=== PATIENT | female | born 1955 | race Caucasian/White ===

== ENCOUNTER 2024-04-23 14:42 | Inpatient (IN) | payer OTHER ==
[~2024-04-23] VITALS: Ht 154.9 cm; Wt 67.6 kg
[~2024-04-23 14:42] MED LIST: DULO-29 PO; GLIP10TA12 PO; INSU100S22 SUBQ; LOSA100T52 PO; PANT40EC56 PO; TRAZ-471 PO
[2024-04-23 15:05] VITALS: BP 147/58; PULSE 103; RESP 18; TEMP 99.1; O2SAT 99
[2024-04-23 15:58] LABS: BASOPHILS # (AUTO) 0.1 K/uL (0.00-0.22); BASOPHILS % (AUTO) 0.4 % (0.0-2.0); EOSINOPHILS % (AUTO) 0.1 % (0.0-4.0); HEMATOCRIT 25.6 % (36-48); HEMOGLOBIN 8.3 g/dL (12.0-16.0); LYMPHOCYTES # (AUTO) 0.7 K/uL (2.5-16.5); LYMPHOCYTES % (AUTO) 3.9 % (20.5-51.1); MEAN CORPUSCULAR HEMOGLOBIN 26 pg (27-31); MEAN CORPUSCULAR HGB CONC 32 g/dL (33-37); MEAN CORPUSCULAR VOLUME 81.2 fL (80-94); MONOCYTES # (AUTO) 0.9 K/uL (0.8-1.0); MONOCYTES % (AUTO) 5.2 % (1.7-9.3); NEUTROPHILS # (AUTO) 15.2 K/uL (1.8-7.7); NEUTROPHILS % (AUTO) 90.4 % (42.2-75.2); PLATELET COUNT (AUTO) 440 K/uL (140-450); RED BLOOD CELL COUNT(AUTO) 3.16 MIL/uL (4.20-5.40); RED CELL DISTRIBUTION WIDTH 16.6 % (11.6-13.7); WHITE BLOOD COUNT (AUTO) 16.8 K/uL (4.8-10.8)
[2024-04-23 16:10] LABS: ANION GAP 17.8 (8-16); CALCIUM 7.8 mg/dL (8.5-10.1); CREATININE 1.2 mg/dL (0.6-1.3); POTASSIUM 3.8 mmol/L (3.5-5.1)
[2024-04-23 16:21] LABS: LACTIC ACID 2.9 mmol/L (0.4-2.0)
[2024-04-23 16:23] LABS: ALBUMIN 2.1 g/dL (3.4-5.0); BILIRUBIN,DIRECT 0.4 mg/dL (0.0-0.3); TOTAL BILIRUBIN 0.7 mg/dL (0.0-1.0); TOTAL PROTEIN, SERUM 8.2 g/dL (6.4-8.2)
[2024-04-23] MEDS ORDERED: cefTRIAXone 1,000 MG VIAL ONE (16:38)
[2024-04-23] MEDS: HYDROcodone/APAP 5/325 MG 1 TAB TAB PO ONE (16:42)
[2024-04-23] MEDS: NACL 0.9% 1,000 ML IV ONE ×2 (16:49→17:51)
[2024-04-23] MEDS ORDERED: MAGNESIUM OXIDE 400 MG TAB PO PRN (17:35)
[2024-04-23] MEDS ORDERED: POTASSIUM CHLORIDE 10 MEQ TABER PO PRN (17:35)
[2024-04-23] MEDS ORDERED: KCL 20 MEQ IN 100 mL PREMIX 200 ML IV PRN (17:35)
[2024-04-23] MEDS ORDERED: VANCOMYCIN PER PHARMACY MC PRN (17:35)
[2024-04-23 18:23] LABS: APPEARANCE,URINE SLIGHTLY HAZY (CLEAR); BILIRUBIN,URINE NEGATIVE (NEGATIVE); BLOOD, URINE NEGATIVE (NEGATIVE); COLOR,URINE YELLOW (YELLOW); LEUKOCYTE ESTERASE ,URINE 1+ (NEGATIVE); NITRITE, URINE NEGATIVE (NEGATIVE); PROTEIN,URINE 3+ (NEGATIVE); UGLUCOSE TRACE (NEGATIVE)
[2024-04-23 18:30] LABS: RBC,URINE 0 /HPF (0-5)
[2024-04-23 18:31] LABS: BACTERIA,URINE 2+ /HPF (None Seen); MUCUS,URINE None Seen /LPF (None Seen); SQUAMOUS EPITHELIAL CELL,UR 0-3 (FEW) /LPF (0-3 (FEW))
[2024-04-23 18:32] LABS: FINE GRANULAR CASTS,URINE 0-10 /LPF (None Seen)
[2024-04-23] MEDS: VANCOMYCIN HCL 750 MG in NACL 0.9% 250 ML IV SCH (18:39)
[2024-04-23] MEDS: NACL 0.9% 1,000 ML IV SCH (18:40)
[2024-04-23 20:55] VITALS: PULSE 76; RESP 20; O2SAT 95
[2024-04-24] VITALS: BP 129/55; PULSE 67; PULSE 70; RESP 20; TEMP 97.4; O2SAT 97
[2024-04-24 04:00] VITALS: BP 130/62; PULSE 71; PULSE 78; RESP 19; TEMP 97.5; O2SAT 96
[2024-04-24 06:41] LABS: BASOPHILS % (AUTO) 0.2 % (0.0-2.0); EOSINOPHILS # (AUTO) 0.2 K/uL (0-0.4); HEMATOCRIT 21.3 % (36-48); LYMPHOCYTES # (AUTO) 2.4 K/uL (2.5-16.5); LYMPHOCYTES % (AUTO) 14.9 % (20.5-51.1); MEAN CORPUSCULAR HEMOGLOBIN 26 pg (27-31); MEAN CORPUSCULAR HGB CONC 33 g/dL (33-37); MEAN CORPUSCULAR VOLUME 80.7 fL (80-94); MONOCYTES # (AUTO) 0.9 K/uL (0.8-1.0); MONOCYTES % (AUTO) 5.5 % (1.7-9.3); NEUTROPHILS # (AUTO) 12.8 K/uL (1.8-7.7); NEUTROPHILS % (AUTO) 78.4 % (42.2-75.2); PLATELET COUNT (AUTO) 388 K/uL (140-450); RED BLOOD CELL COUNT(AUTO) 2.64 MIL/uL (4.20-5.40); RED CELL DISTRIBUTION WIDTH 15.9 % (11.6-13.7); WHITE BLOOD COUNT (AUTO) 16.4 K/uL (4.8-10.8)
[2024-04-24 06:48] LABS: ANION GAP 12.6 (8-16); CALCIUM 7.1 mg/dL (8.5-10.1); CARBON DIOXIDE 24.4 mmol/L (21-32); CREATININE 0.9 mg/dL (0.6-1.3)
[2024-04-24 07:27] LABS: MAGNESIUM 1.5 mg/dL (1.8-2.4); PHOSPHORUS 2.8 mg/dL (2.5-4.9)
[2024-04-24 08:00] VITALS: BP 142/60; PULSE 72; PULSE 78; RESP 18; TEMP 97.7; O2SAT 100
[2024-04-24 12:00] VITALS: BP 125/49; PULSE 74; PULSE 82; RESP 18; TEMP 98.5; O2SAT 100
[2024-04-24 16:00] VITALS: BP 125/52; PULSE 85; PULSE 87; RESP 18; TEMP 98.2; O2SAT 98
[2024-04-24] MEDS ORDERED: traZODone 50 MG TAB PO PRN (17:25)
[2024-04-24 18:21] LABS: FLU A ANTIGEN negative (NEGATIVE); FLU B ANTIGEN negative (NEGATIVE)
[2024-04-24] MEDS: HYDROcodone/APAP 5/325 MG 1 TAB TAB PO PRN (19:01)
[2024-04-24 20:00] VITALS: BP 149/60; PULSE 98; RESP 18; TEMP 97.7; TEMP 98.2; O2SAT 96; O2SAT 98
[2024-04-24] MEDS: glipiZIDE 10 MG TAB PO SCH (20:17)
[2024-04-24] MEDS: MAG SULF 2000 MG/WATER PREMIX 50 ML IV PRN (20:54)
[2024-04-24] MEDS ORDERED: NON-FORMULARY ITEM (Trazodone HCl 1 TAB) PO SCH (21:00)
[2024-04-24] MEDS: traZODone 50 MG TAB PO PRN (21:49)
[2024-04-25] VITALS: BP 149/60; PULSE 98; RESP 18; TEMP 97.7; O2SAT 98
[2024-04-25 04:00] VITALS: BP 149/63; PULSE 77; RESP 16; TEMP 96.6; O2SAT 100
[2024-04-25] MEDS: PANTOPRAZOLE 40 MG TABEC PO SCH (07:02)
[2024-04-25 07:06] LABS: BASOPHILS # (AUTO) 0.1 K/uL (0.00-0.22); BASOPHILS % (AUTO) 0.7 % (0.0-2.0); EOSINOPHILS # (AUTO) 0.3 K/uL (0-0.4); EOSINOPHILS % (AUTO) 3.8 % (0.0-4.0); HEMATOCRIT 22.1 % (36-48); HEMOGLOBIN 7.2 g/dL (12.0-16.0); LYMPHOCYTES # (AUTO) 1.7 K/uL (2.5-16.5); LYMPHOCYTES % (AUTO) 19.6 % (20.5-51.1); MEAN CORPUSCULAR HEMOGLOBIN 26 pg (27-31); MEAN CORPUSCULAR HGB CONC 32 g/dL (33-37); MEAN CORPUSCULAR VOLUME 81.4 fL (80-94); MONOCYTES # (AUTO) 0.8 K/uL (0.8-1.0); MONOCYTES % (AUTO) 8.8 % (1.7-9.3); NEUTROPHILS # (AUTO) 5.8 K/uL (1.8-7.7); NEUTROPHILS % (AUTO) 67.1 % (42.2-75.2); PLATELET COUNT (AUTO) 439 K/uL (140-450); RED BLOOD CELL COUNT(AUTO) 2.72 MIL/uL (4.20-5.40); WHITE BLOOD COUNT (AUTO) 8.7 K/uL (4.8-10.8)
[2024-04-25 07:13] LABS: ANION GAP 11.1 (8-16); CALCIUM 7.5 mg/dL (8.5-10.1); CARBON DIOXIDE 24.8 mmol/L (21-32); CREATININE 0.9 mg/dL (0.6-1.3); POTASSIUM 3.9 mmol/L (3.5-5.1)
[2024-04-25 07:28] LABS: PHOSPHORUS 2.7 mg/dL (2.5-4.9)
[2024-04-25 08:00] VITALS: BP 144/59; PULSE 79; RESP 16; RESP 18; TEMP 97.5; TEMP 97.7; O2SAT 95; O2SAT 96
[2024-04-25] MEDS ORDERED: DULOXETINE HCL PO SCH (09:00)
[2024-04-25] MEDS ORDERED: NON-FORMULARY ITEM (Losartan Potassium 1 TAB) PO SCH (09:00)
[2024-04-25] MEDS: DULoxetine 30 MG CAPDR PO SCH (10:29)
[2024-04-25] MEDS: LOSARTAN 50 MG TAB PO SCH (10:30)
[2024-04-25] MEDS ORDERED: DEXTROSE 50% 50 ML SYR IVP PRN (18:15)
[2024-04-25] MEDS: INSULIN LISPRO SLIDING SCALE 100 UNITS/ML VIAL SUBQ PRN (18:26)
[2024-04-25] MEDS: VANCOMYCIN HCL 750 MG in NACL 0.9% 250 ML IV SCH (18:33)
[2024-04-25 20:00] VITALS: BP 131/63; PULSE 98; RESP 16; RESP 18; TEMP 97.6; O2SAT 98
[2024-04-25] MEDS: BLOOD GLUCOSE MONITORING 1 DEV DEV FS SCH (20:52)
[2024-04-26 04:00] VITALS: BP 125/53; PULSE 78; RESP 18; TEMP 97.3; O2SAT 95
[2024-04-26 06:32] LABS: BASOPHILS % (AUTO) 0.5 % (0.0-2.0); EOSINOPHILS # (AUTO) 0.3 K/uL (0-0.4); EOSINOPHILS % (AUTO) 2.9 % (0.0-4.0); LYMPHOCYTES # (AUTO) 2.3 K/uL (2.5-16.5); LYMPHOCYTES % (AUTO) 25.9 % (20.5-51.1); MEAN CORPUSCULAR HEMOGLOBIN 27 pg (27-31); MEAN CORPUSCULAR HGB CONC 33 g/dL (33-37); MEAN CORPUSCULAR VOLUME 81.3 fL (80-94); MONOCYTES # (AUTO) 0.8 K/uL (0.8-1.0); MONOCYTES % (AUTO) 9.5 % (1.7-9.3); NEUTROPHILS # (AUTO) 5.3 K/uL (1.8-7.7); NEUTROPHILS % (AUTO) 61.2 % (42.2-75.2); PLATELET COUNT (AUTO) 449 K/uL (140-450); RED BLOOD CELL COUNT(AUTO) 2.63 MIL/uL (4.20-5.40); RED CELL DISTRIBUTION WIDTH 16.2 % (11.6-13.7); WHITE BLOOD COUNT (AUTO) 8.7 K/uL (4.8-10.8)
[2024-04-26 06:41] LABS: ANION GAP 10.6 (8-16); CALCIUM 7.4 mg/dL (8.5-10.1); CARBON DIOXIDE 23.9 mmol/L (21-32); CREATININE 0.9 mg/dL (0.6-1.3); POTASSIUM 3.5 mmol/L (3.5-5.1)
[2024-04-26 06:51] LABS: PHOSPHORUS 2.8 mg/dL (2.5-4.9)
[2024-04-26 07:29] LABS: HEMATOCRIT 21.4 % (36-48)
[2024-04-26 08:00] VITALS: PULSE 66; RESP 18; TEMP 97.4; O2SAT 99
[2024-04-26 13:36] VITALS: BP 118/53; PULSE 66; RESP 18; TEMP 97.4; O2SAT 99
[2024-04-26 19:01] LABS: BASOPHILS # (AUTO) 0.1 K/uL (0.00-0.22); BASOPHILS % (AUTO) 0.6 % (0.0-2.0); EOSINOPHILS # (AUTO) 0.2 K/uL (0-0.4); EOSINOPHILS % (AUTO) 2.2 % (0.0-4.0); HEMATOCRIT 25.8 % (36-48); HEMOGLOBIN 8.3 g/dL (12.0-16.0); LYMPHOCYTES % (AUTO) 21.7 % (20.5-51.1); MEAN CORPUSCULAR HEMOGLOBIN 27 pg (27-31); MEAN CORPUSCULAR HGB CONC 32 g/dL (33-37); MEAN CORPUSCULAR VOLUME 83.2 fL (80-94); MONOCYTES # (AUTO) 0.9 K/uL (0.8-1.0); MONOCYTES % (AUTO) 9.8 % (1.7-9.3); NEUTROPHILS # (AUTO) 6.1 K/uL (1.8-7.7); NEUTROPHILS % (AUTO) 65.7 % (42.2-75.2); PLATELET COUNT (AUTO) 476 K/uL (140-450); RED CELL DISTRIBUTION WIDTH 16.5 % (11.6-13.7); WHITE BLOOD COUNT (AUTO) 9.3 K/uL (4.8-10.8)
[2024-04-26 20:00] VITALS: BP 140/76; PULSE 78; RESP 18; TEMP 98.2; O2SAT 98
[2024-04-27 06:45] LABS: HEMATOCRIT 25.3 % (36-48); HEMOGLOBIN 8.3 g/dL (12.0-16.0); MEAN CORPUSCULAR HEMOGLOBIN 27 pg (27-31); MEAN CORPUSCULAR HGB CONC 33 g/dL (33-37); MEAN CORPUSCULAR VOLUME 82.2 fL (80-94); PLATELET COUNT (AUTO) 484 K/uL (140-450); RED BLOOD CELL COUNT(AUTO) 3.08 MIL/uL (4.20-5.40); RED CELL DISTRIBUTION WIDTH 16.8 % (11.6-13.7); WHITE BLOOD COUNT (AUTO) 9.7 K/uL (4.8-10.8)
[2024-04-27 07:25] LABS: ANION GAP 11.8 (8-16); CALCIUM 8.4 mg/dL (8.5-10.1); CARBON DIOXIDE 22.9 mmol/L (21-32); CREATININE 1.6 mg/dL (0.6-1.3); POTASSIUM 3.7 mmol/L (3.5-5.1)
[2024-04-27 07:36] LABS: MAGNESIUM 1.9 mg/dL (1.8-2.4); PHOSPHORUS 3.7 mg/dL (2.5-4.9)
[2024-04-27 08:00] VITALS: BP 156/77; PULSE 73; RESP 18; TEMP 97.1; O2SAT 97
[2024-04-27 08:01] LABS: BASOPHILS % (MANUAL) 1 % (0-2)
[2024-04-27 08:02] LABS: EOSINOPHILS % (MANUAL) 5 % (0-4); MONOCYTES % (MANUAL) 10 % (5-12)
[2024-04-27 08:03] LABS: LYMPHOCYTES % (MANUAL) 24 % (20-46)
[2024-04-27 09:26] VITALS: BP 149/56; PULSE 83; TEMP 98
[2024-04-27] MEDS: cefTRIAXone 1,000 MG VIAL ONE (18:14)
[2024-04-27 20:00] VITALS: PULSE 75
[2024-04-28] VITALS: BP 124/66; PULSE 78; TEMP 98.3; O2SAT 98
[2024-04-28 07:05] LABS: BASOPHILS # (AUTO) 0.1 K/uL (0.00-0.22); BASOPHILS % (AUTO) 1.1 % (0.0-2.0); EOSINOPHILS # (AUTO) 0.3 K/uL (0-0.4); EOSINOPHILS % (AUTO) 3.6 % (0.0-4.0); HEMATOCRIT 24.9 % (36-48); HEMOGLOBIN 8.1 g/dL (12.0-16.0); MEAN CORPUSCULAR HEMOGLOBIN 27 pg (27-31); MEAN CORPUSCULAR HGB CONC 33 g/dL (33-37); MEAN CORPUSCULAR VOLUME 82.4 fL (80-94); MONOCYTES # (AUTO) 0.7 K/uL (0.8-1.0); MONOCYTES % (AUTO) 8.6 % (1.7-9.3); NEUTROPHILS # (AUTO) 5.3 K/uL (1.8-7.7); NEUTROPHILS % (AUTO) 62.7 % (42.2-75.2); PLATELET COUNT (AUTO) 501 K/uL (140-450); RED BLOOD CELL COUNT(AUTO) 3.02 MIL/uL (4.20-5.40); RED CELL DISTRIBUTION WIDTH 16.6 % (11.6-13.7); WHITE BLOOD COUNT (AUTO) 8.4 K/uL (4.8-10.8)
[2024-04-28 07:17] LABS: PHOSPHORUS 4.2 mg/dL (2.5-4.9)
[2024-04-28 07:22] LABS: ANION GAP 12.3 (8-16); CARBON DIOXIDE 22.8 mmol/L (21-32); CREATININE 2.1 mg/dL (0.6-1.3); POTASSIUM 4.1 mmol/L (3.5-5.1)
[2024-04-28 08:00] VITALS: BP 134/65; PULSE 79; RESP 18; TEMP 97.2; O2SAT 100
[2024-04-28] MEDS ORDERED: GAUZE TP PRN (11:40)
[2024-04-28] MEDS: GAUZE TP SCH (11:57)
[2024-04-28 16:00] VITALS: BP 157/66; PULSE 74; RESP 18; TEMP 97.6; O2SAT 99
[2024-04-28 20:00] VITALS: BP 146/77; PULSE 70; RESP 18; TEMP 97.1; O2SAT 97
[2024-04-28] MEDS: cefTRIAXone 2,000 MG in DEXTROSE 5% 100 ML IV SCH (20:55)
[2024-04-28] MEDS: ACETAMINOPHEN 325 MG TAB PO PRN (21:11)
[2024-04-29 07:29] LABS: ANION GAP 13.9 (8-16); CALCIUM 8.3 mg/dL (8.5-10.1); CARBON DIOXIDE 22.3 mmol/L (21-32); CREATININE 2.1 mg/dL (0.6-1.3); POTASSIUM 4.2 mmol/L (3.5-5.1)
[2024-04-29 08:00] VITALS: BP 155/68; PULSE 86; RESP 18; TEMP 98.4; O2SAT 95
[2024-04-29] MEDS: ONDANSETRON 4 MG/2 ML VIAL IVP PRN (12:19)
[2024-04-29] MEDS ORDERED: AMOX-999 PO (13:22)
[2024-04-29 16:00] VITALS: BP 145/64; PULSE 79; RESP 18; TEMP 98.5; O2SAT 91
[2024-04-29 20:00] VITALS: BP 144/69; PULSE 71; RESP 18; TEMP 97.8; TEMP 98.5; O2SAT 99
[2024-04-30 07:35] LABS: ANION GAP 13.1 (8-16); CALCIUM 8.2 mg/dL (8.5-10.1); CARBON DIOXIDE 21.5 mmol/L (21-32); CREATININE 2.3 mg/dL (0.6-1.3); POTASSIUM 4.6 mmol/L (3.5-5.1)
[2024-04-30 08:00] VITALS: BP 145/65; PULSE 70; PULSE 86; RESP 18; TEMP 98; O2SAT 99
[2024-04-30 11:37] VITALS: BP 145/65; PULSE 70; RESP 19; TEMP 98
== END 2024-04-30 13:20 | disposition home or self-care (01) | DRG 871 ==
LOC: MED 14:42 → MTU 17:58
PROVIDERS: ADMIT Internal Medicine; ATTEND Internal Medicine
PROC: 0J9Q0ZZ Drainage of Right Foot Subcutaneous Tissue and Fascia, Open Approach (ICD-10-PCS; 2024-04-24)
PROC: 30233N1 Transfusion of Nonautologous Red Blood Cells into Peripheral Vein, Percutaneous Approach (ICD-10-PCS; principal; 2024-04-26)
DX: A41.9 Sepsis, unspecified organism (principal); E43 Unspecified severe protein-calorie malnutrition; N17.9 Acute kidney failure, unspecified; E87.1 Hypo-osmolality and hyponatremia; L03.115 Cellulitis of right lower limb; E11.621 Type 2 diabetes mellitus with foot ulcer; I10 Essential (primary) hypertension; E11.51 Type 2 diabetes mellitus with diabetic peripheral angiopathy without gangrene; D63.8 Anemia in other chronic diseases classified elsewhere; Z90.710 Acquired absence of both cervix and uterus; Z79.899 Other long term (current) drug therapy; L97.519 Non-pressure chronic ulcer of other part of right foot with unspecified severity; T36.8X5A Adverse effect of other systemic antibiotics, initial encounter; Z68.28 Body mass index [BMI] 28.0-28.9, adult
CPT/HCPCS: 36415; 36430; 73630; 73701; 76770; 80048; 80076; 80202; 81001; 82948; 83605; 83735; 84100; 85025; 86886; 86900; 86901; 86920; 87040; 87081; 87086; 93925; 96361; 96365; 97112; 97116; 97163-GP; 97530; 99285; J0696; J1644; J1815; J2405; J3370; J3475; J7030; J7060; P9016; Q0092; Q9967